=== PATIENT | female | born 1955 | race Caucasian/White ===

== ENCOUNTER 2018-10-30 10:35 | Emergency (ER) | payer OTHER ==
[~2018-10-30] VITALS: Ht 162.6 cm; Wt 67.1 kg
[2018-10-30] MEDS ORDERED: [UNRECOGNIZED DRUG - OTHER] (10:51)
[2018-10-30] MEDS ORDERED: EYE DROPS (10:52)
[2018-10-30 12:52] VITALS: BP 129/84
== END 2018-10-30 12:53 | disposition home or self-care (01) ==
LOC: M.ERS 10:35
DX: S92.355A Nondisplaced fracture of fifth metatarsal bone, left foot, initial encounter for closed fracture (principal); Z88.5 Allergy status to narcotic agent; W10.1XXA Fall (on)(from) sidewalk curb, initial encounter; Y93.89 Activity, other specified; Y92.89 Other specified places as the place of occurrence of the external cause; Y99.8 Other external cause status